=== PATIENT | male | born 2000 | race African-American/Black ===

== ENCOUNTER 2022-10-11 09:14 | Emergency (ER) | payer SELFPAY | END 2022-10-11 10:00 | disposition home or self-care (01) | LOC: CSHERS 09:14 | DX: B34.9 Viral infection, unspecified (principal) | CPT/HCPCS: 87804; 99283 ==

== ENCOUNTER 2023-08-08 22:56 | Emergency (ER) | payer SELFPAY ==
[2023-08-09] MEDS ORDERED: Acetaminophen 500 MG TAB ONE (00:12)
[2023-08-09] MEDS ORDERED: Dexamethasone 10 MG/ML VIAL ONE (00:25)
[2023-08-09] MEDS ORDERED: Azithromycin 250 MG TAB PO ONE (01:30)
[2023-08-09] MEDS ORDERED: Azithromycin 250 MG TAB ONE (01:44)
== END 2023-08-09 01:51 | disposition home or self-care (01) ==
LOC: CSHERS 22:56
DX: J18.9 Pneumonia, unspecified organism (principal)
CPT/HCPCS: 71045; 87081; 87430; J1100

== ENCOUNTER 2024-08-02 11:45 | Emergency (ER) | payer OTHER, SELFPAY ==
[2024-08-02] MEDS ORDERED: Ondansetron PF 4 MG/2 ML Vial ONE (12:36)
[2024-08-02] MEDS ORDERED: Ketorolac Tromethamine 30 MG (1 mL) VIAL ONE (12:36)
[2024-08-02] MEDS ORDERED: Acetaminophen 500 MG TAB ONE (12:37)
== END 2024-08-02 13:59 | disposition home or self-care (01) ==
LOC: CSHERS 11:45
DX: R11.2 Nausea with vomiting, unspecified (principal); R19.7 Diarrhea, unspecified
CPT/HCPCS: 96361; 96374; 96375; J1885; J2405

== ENCOUNTER 2025-06-26 22:38 | Emergency (ER) | payer OTHER ==
[2025-06-26] MEDS ORDERED: Ketorolac Tromethamine 30 MG (1 mL) VIAL ONE (23:05)
[2025-06-26] MEDS ORDERED: Cyclobenzaprine 10 MG TAB ONE (23:05)
== END 2025-06-26 23:32 | disposition home or self-care (01) ==
LOC: CSHERS 22:38
DX: M54.50 Low back pain, unspecified (principal)
CPT/HCPCS: 96372; 99283; J1885

== ENCOUNTER 2025-07-12 19:32 | Emergency (ER) | payer OTHER, SELFPAY | END 2025-07-12 20:57 | disposition home or self-care (01) | LOC: CSHERS 19:32 | DX: M71.521 Other bursitis, not elsewhere classified, right elbow (principal) ==